=== PATIENT | female | born 1995 | race Caucasian/White ===

== ENCOUNTER → 2022-04-13 15:12 | Outpatient (CLI) | payer OTHER, SELFPAY ==
--- NOTE | 2022-04-13 15:15 | DI.US.S_ITS ---
PROCEDURE: US OB <= 14 WEEKS FETUS INDICATIONS: Dating and viability OUTSIDE/PRIOR DATING DATA: Last menstrual period (LMP): 02/19/2022 LMP-based estimated date of delivery (JACOB): 11/26/2022. First dating scan (date and location): 04/13/2022. Estimated date of delivery (JACOB) from first dating scan: 11/26/2022. TECHNIQUE: COMPARISON: None. FINDINGS: Embryo: [place]-rump length measures 1.4 cm corresponding to 7 weeks 4 days. Heart rate: 155 A yolk sac is seen. Maternal organs: Ovaries within normal limits, with right corpus luteal cyst. IMPRESSION: 7 week 4 day single living IUP corresponding to ultrasound JACOB of 11/26/2022. We strive to produce accurate, complete, and clear reports of imaging services. To assist us in improving patient care, this report was composed using standard report templates and voice recognition software. Therefore, it may contain abnormal punctuation, insertions and/or omissions. Occasional wrong-word or sound-alike substitutions may occur. Though we review the report and make efforts to correct it, we do recommend that the report be read carefully in proper context to recognize any text inaccuracies. Dictated by: Santana UGALDE Interpreted: Jose Pedroza MD on 04/13/2022 at 16:17 Transcribed by: RUBENS on 04/13/2022 at 16:18 Approved by: Jose Pedroza M.D. on 04/13/2022 at 20:10
== END ==
PROVIDERS: Referring Provider Obstetrics & Gynecology; Visit Provider Obstetrics & Gynecology
DX: Z36.87 Encounter for antenatal screening for uncertain dates (principal); Z3A.01 Less than 8 weeks gestation of pregnancy
CPT/HCPCS: 76801; 76817

== ENCOUNTER → 2022-05-17 13:14 | Outpatient (CLI) | payer OTHER, SELFPAY | PROVIDERS: Visit Provider Obstetrics & Gynecology | DX: Z34.00 Encounter for supervision of normal first pregnancy, unspecified trimester (principal) | CPT/HCPCS: 87086 ==

== ENCOUNTER → 2022-05-17 14:25 | Outpatient (CLI) | payer OTHER, SELFPAY ==
[2022-05-17 14:53] LABS: Add Manual Diff / Slide Review NO; Basophils Absolute Auto 0 /uL (0-100); Basophils Percent Auto 0.7 % (0-2); Eosinophils Absolute Auto 100 /uL (0-450); Eosinophils Percent Auto 1.3 % (2-4); Hematocrit 32.3 % (36-46); Hemoglobin 10.9 g/dL (12.0-16.0); Lymphocytes Absolute Auto 1600 /uL (1100-4500); Lymphocytes Percent Auto 34.2 % (25-40); Mean Corpuscular HGB Conc 33.8 % (30-36); Mean Corpuscular Volume 94.6 fL (80-100); Monocytes Absolute Auto 400 /uL (0-900); Monocytes Percent Auto 8.9 % (3-14); Neutrophils Absolute Auto 2500 /uL (1500-7000); Neutrophils Percent Auto 54.9 % (50-75); Platelet Count 188 X10^3/uL (150-400); Red Blood Cell Count 3.42 X10^6/uL (4.0-5.2); Red Cell Distribution Width 13.8 % (11.6-14.8); White Blood Cell Count 4.6 X10^3/uL (4.5-11.0)
[2022-05-17 16:30] LABS: Hepatitis B Surface Antigen NEGATIVE s/c (NEGATIVE); Rubella Antibody IgG 63.5 IU/mL (>15)
[2022-05-17 16:35] LABS: HIV 1 & 2 Ab/Ag 4th Gen Combo NEGATIVE (NEGATIVE); Hep C Virus Ab w/Reflex Quant NEGATIVE s/c (NEGATIVE)
[2022-05-18 09:13] LABS: Varicella IgG Antibody 176 index (Immune >165)
[2022-05-19 02:42] LABS: RPR Screen Non Reactive (Non Reactive)
== END ==
PROVIDERS: Referring Provider Obstetrics & Gynecology; Visit Provider Obstetrics & Gynecology
DX: Z34.00 Encounter for supervision of normal first pregnancy, unspecified trimester (principal)
CPT/HCPCS: 36415; 80055; 86787; 86803; 86850; 86900; 86901; 87086; 87389

== ENCOUNTER → 2022-06-15 14:01 | Outpatient (CLI) | payer OTHER, SELFPAY | PROVIDERS: Referring Provider Obstetrics & Gynecology; Visit Provider Obstetrics & Gynecology | DX: Z34.81 Encounter for supervision of other normal pregnancy, first trimester (principal) | CPT/HCPCS: 36415 ==

== ENCOUNTER → 2022-07-13 14:21 | Outpatient (CLI) | payer OTHER, SELFPAY ==
--- NOTE | 2022-07-13 14:23 | DI.US.S_ITS ---
PROCEDURE: US OB >= 14 WEEKS FETUS INDICATIONS: ANATOMY OUTSIDE/PRIOR DATING DATA: Last menstrual period (LMP): 02/19/2022. LMP-based estimated date of delivery (JACOB): 11/26/2022. First dating scan (date and location): 04/13/2022. Estimated date of delivery (JACOB) from first dating scan: 11/26/2022. The calculations are made using the working JACOB of 11/26/2022. TECHNIQUE: Real-time scanning was performed of the fetus, with image documentation and biometric measurements. Endovaginal scanning: None COMPARISON: None. FINDINGS: General: A single living intrauterine gestation is present. Presentation: Breech. Placenta: Placental position is posterior , without previa. Amniotic fluid index: 12.3 cm, normal range is 5-24 cm. Single deepest vertical pocket is 4.0 cm. heart rate: 147 beats per minute. Maternal cervical canal: 4.6 cm long. Normal lower limit is 2.5 cm. biometrics: Biparietal diameter: 5.0 cm, 21 week 0 day Head circumference: 18.3 cm, 20 week 5 day Abdominal circumference: 17.0 cm, 22 week 0 day Femur length: 3.2 cm, 20 week 0 day Clinically estimated gestational age: 20 week 4 day Composite gestational age from present scan: 21 week 0 day Estimated weight and percentile: 396 g, 72 percentile Anatomic survey: Neuro: Ventricles are non-dilated at less than 10 mm. Cisterna magna is normal at 3-11 mm. Cerebellum is normal in size and morphology. Nuchal skin fold: Normal at less than 6 mm between 14-21 weeks gestational age. Face: Nose and lips, facial profile are normal. Spine: No evidence for spina bifida. Heart: 4-chambered heart is present, with normal ventricular outflow tracts. Diaphragm: Diaphragm is intact. Stomach: Left-sided stomach is present. Kidneys: No hydronephrosis. Normal is less than 5 mm in 2nd trimester, less than 7 mm in 3rd trimester. Cord: 3-vessel cord has orthotopic insertion. Bladder: Normal in size. Extremities: All 4 extremities identified. IMPRESSION: Single live intrauterine consistent with 21 week 0 day gestation by current ultrasound Probable placental marginal cord insertion along the superior edge Approved by: Bryce Sr M.D. on 07/13/2022 at 17:47
[2022-07-16 22:03] LABS: AFP, Serum 58.4 ng/mL (.); Estriol, Free 2.47 ng/mL (.); Inhibin A, Dimeric 234.69 pg/mL (.); Inhibin A, MoM 1.12 (.); Maternal Ethnicity Caucasian (.); Maternal Weight 132 lbs (.); Number of Fetuses No (.); OSBR Risk 1 IN 10000 (.); Results Report (.); Test Results *Screen Negative* (.); hCG, MoM 0.69 (.); hCG, Serum 18727 mIU/mL (.)
== END ==
PROVIDERS: Referring Provider Obstetrics & Gynecology; Visit Provider Obstetrics & Gynecology
DX: Z34.02 Encounter for supervision of normal first pregnancy, second trimester (principal); Z3A.21 21 weeks gestation of pregnancy
CPT/HCPCS: 36415; 76811; 82105; 82677; 84702; 86336

== ENCOUNTER → 2022-08-23 08:18 | Outpatient (CLI) | payer OTHER, SELFPAY ==
[2022-08-23 10:44] LABS: Hematocrit 31.5 % (36-46); Hemoglobin 10.9 g/dL (12.0-16.0)
[2022-08-23 11:12] LABS: GTT (PREG) 1 Hour PP 50gm Dose 90 mg/dL (76-139)
== END ==
PROVIDERS: Referring Provider Obstetrics & Gynecology; Visit Provider Obstetrics & Gynecology
DX: Z34.02 Encounter for supervision of normal first pregnancy, second trimester (principal); Z3A.26 26 weeks gestation of pregnancy
CPT/HCPCS: 36415; 82950; 85014; 85018

== ENCOUNTER → 2022-11-02 15:29 | Outpatient (CLI) | payer OTHER, SELFPAY ==
[2022-11-03 14:18] LABS: Strep Grp B PCR NEG for Grp B Strep
== END ==
PROVIDERS: Visit Provider Obstetrics & Gynecology
DX: Z34.90 Encounter for supervision of normal pregnancy, unspecified, unspecified trimester (principal)
CPT/HCPCS: 87653

== ENCOUNTER 2022-11-24 22:05 | Inpatient (IN) | payer OTHER, SELFPAY ==
[2022-11-25 01:02] LABS: Add Manual Diff / Slide Review NO; Basophils Absolute Auto 0 /uL (0-100); Basophils Percent Auto 0.4 % (0-2); Eosinophils Absolute Auto 100 /uL (0-450); Eosinophils Percent Auto 1.3 % (2-4); Hematocrit 35.8 % (36-46); Hemoglobin 12.4 g/dL (12.0-16.0); Lymphocytes Absolute Auto 1200 /uL (1100-4500); Lymphocytes Percent Auto 12.1 % (25-40); Mean Corpuscular HGB Conc 34.7 % (30-36); Mean Corpuscular Hemoglobin 33.1 PG (26-34); Mean Corpuscular Volume 95.5 fL (80-100); Monocytes Absolute Auto 600 /uL (0-900); Neutrophils Absolute Auto 7600 /uL (1500-7000); Neutrophils Percent Auto 80.2 % (50-75); Platelet Count 152 X10^3/uL (150-400); Red Blood Cell Count 3.75 X10^6/uL (4.0-5.2); White Blood Cell Count 9.5 X10^3/uL (4.5-11.0)
--- NOTE | 2022-11-25 01:35 | P.PCN_ITS ---
Regional Block Pre-procedure Procedure: Continuous Lumbar Epidural for L&D Attending OB provider: Yumiko Frost PMH/ROS narrative: Minimal medical history. Uncomplicated at term. Hx: No personal or family history of anesthesia problems. ASA Class: II Labs: Hct 35.8 % (36-46) L 11/25/22 00:47 Plt Count 152 X10^3/uL (150-400) 11/25/22 00:47 Medications: Current Medications Generic Name Dose Route Start Last Admin Trade Name Freq PRN Reason Stop Dose Admin Carboprost Tromethamine 250 mcg 11/24/22 23:14 Carboprost 250 Mcg/Ml Ampul IM Q90M PRN Bleeding Diphenhydramine HCl 25 mg 11/25/22 00:25 Diphenhydramine 50 Mg/Ml Vial IV Q10M PRN Pruritis Ephedrine Sulfate 10 mg 11/25/22 00:25 Ephedrine 50 Mg/Ml Vial IV Q5M PRN Blood pressure decrease more than 20% of baseline. Oxytocin/Lactated Ringer's 30 unit in 500 mls @ 200 mls/hr 11/24/22 23:14 Oxytocin Premix IV CONT PRN Bleeding Protocol Tranexamic Acid 1,000 mg/ 100 mls @ 200 mls/hr 11/24/22 23:14 Sodium Chloride IV NOW PRN Bleeding Lactated Ringer's 1,000 mls @ 100 mls/hr 11/24/22 23:15 Lactated Ringers IV CONT ULISES FENT 2MCG/ML BUPIV 0.1% EPI 200 mcg in 100 mls @ 12 mls/hr 11/25/22 00:30 Fentanyl/Bupiv/Ns 2mcg/Ml - 0.1% EPIDURAL CONT ULISES Lidocaine HCl 20 ml 11/24/22 23:14 Lidocaine 1% 20 Ml INJ INTRA-OP PRN Post Delivery Methylergonovine Maleate 0.2 mg 11/24/22 23:14 Methylergonovine 0.2 Mg Tablet PO Q6HR PRN Heavy Bleeding Methylergonovine Maleate 0.2 mg 11/24/22 23:14 Methylergonovine 0.2 Mg/Ml Vial IM NOW PRN Bleeding Misoprostol 800 mcg 11/24/22 23:14 Misoprostol 200 Mcg Tablet [place] NOW PRN Bleeding Misoprostol 400 mcg 11/24/22 23:14 Misoprostol 200 Mcg Tablet SL NOW PRN Bleeding Nalbuphine HCl 2.5 mg 11/25/22 00:25 Nalbuphine 20 Mg/Ml Ampul IV Q10M PRN Pruritis Naloxone HCl 0.2 mg 11/24/22 23:14 Naloxone 0.4 Mg/Ml Vial IV Q2MIN PRN Opiate Reversal Oxytocin 10 unit 11/24/22 23:14 Oxytocin 10 Unit/Ml Vial IM NOW PRN Bleeding Allergies: Allergies Allergy/AdvReac Type Severity Reaction Status Date / Time No Known Drug Allergies Allergy Unverified 11/24/22 13:56 Procedure Insertion date: 11/25/22 Insertion time: 00:55 Prep/Local: 1% lidocaine (Sterile technique with mask, Chloraprep scrub, sterile gloves, and large sterile drape) Interspace: L3-4 Patient position: sitting Needle: 18 gauge Aly Loss of resistance with: saline (with air bubble) FRANK at (cm): 3 Catheter placed at SKIN (cm): 8 Catheter in SPACE (cm): 5 Insertion: No CSF, No Blood, No Paresthesia with insertion, No Paresthesia with injection and No Test dose reaction Initial Medications TEST DOSE time: 01:07 TEST DOSE: 1.5% lidocaine with epinephrine 1:200k (mL): 3 BOLUS DOSE time: 01:12 BOLUS DOSE (mL): 6 BOLUS DOSE med: other (0.1% bupivacaine with 2mcg/mL fentanyl (bag solution)) Infusion INFUSION: with fentanyl 2 mcg/mL (0.1% bupivacaine with 2mcg/mL fentanyl (bag solution)) Initial rate (mL/hr): 12 Subsequent interventions: 11/25/22 - 399 - Proceeded to due to breech presentation. Patient and baby stable at time of call for section. See c- section anesthesia for further documentation. Epidural eventually removed after at approximately 0545 with tip intact. Post-procedure Anesthesia time START: 00:53 Anesthesia time END: 04:47 Post-procedure Anesthesia Assessment: Yes CV function: HR/BP stable, Yes Resp function: RR/sat/airway adequate, Yes Post-op hydration adequate, Yes Pain control adequate, Yes Nausea & vomiting absent, Yes Temperature > 36 C, Yes Mental status appropriate and Yes Anesthesia complications
--- NOTE | 2022-11-25 04:03 | PM.OBHP.IH.1 ---
OB HPI Date/Time Date of admission: 11/25/22 Date Patient Seen: 11/25/22 Time Patient Seen: 04:03 History of Present Condition Chief complaint: observation of labor JACOB Calculator Estimated Delivery Date Method Current WG Current Estimate 11/26/22 LMP (Certain) 39w 6d Other Estimates 11/26/22 Ultrasound #1 39w 6d Estimated Gestational Age (weeks): 39w6d : 1 Para: 0 Narrative: 27yo at 39w6d here with painful contractions and LOF at 20:30 with clear fluid. The pt reports contractions started to get stronger shortly after her water broke. She denies any vaginal bleeding. She is feeling her baby move regularly. Her was without significant complications. care: good care, initiated at week # (12) and pounds weight gain (39) Dating criteria OB: LMP confirmed by 1st trimester US Ultrasounds: normal 1st trimester US and normal mid trimester US Obstetrical complications: none Medical complications OB: none Preadmission Labs Last OB Lab Results: Blood Type A Positive 11/25/22 00:47 Antibody Screen Negative 11/25/22 00:47 Hematocrit 35.8 % (36-46) L 11/25/22 00:47 Hemoglobin 12.4 g/dL (12.0-16.0) 11/25/22 00:47 Hepatitis B Surface Antigen Negative s/c (NEGATIVE) 05/17/22 14:35 Hepatitis C Antibody Negative s/c (NEGATIVE) 05/17/22 14:35 Rubella Antibody 63.5 IU/mL (>15) 05/17/22 14:35 Varicella-Zoster IgG Antibody 176 index (Immune >165) 05/17/22 14:35 Glucose 1 Hour 90 mg/dL (76-139) 08/23/22 10:26 Group B Streptococcus (PCR) Neg for grp b strep 11/02/22 15:29 -: Chlamydia screen: negative and Gonorrhea screen: negative -: PAP smear: Normal Genetic Screens: Quad screen: Normal Evaluation Evaluation Baseline heart rate: 150 Variability: Moderate (11-25) monitor accelerations: Present Monitor Decelerations: Variable Contraction Frequency (minutes): 2 Uterine Contraction Intensity: Strong/Firm Status: Category ll Dilation (cm): 10 Effacement (%): 100 station: +1 [facility] Medical History (Updated 11/09/22 @ 17:28 by Casey Jane MD) Acne (~2006) History of BCG vaccination Hyperlipidemia Surgical History (Updated 05/16/22 @ 19:40 by Kateryna Farah) Anesthesia H/O breast augmentation (~2018) [place] teeth extracted (~2014) Family History (Updated 05/16/22 @ 19:44 by Kateryna Farah) Father Colon cancer Smoker Mother Hyperlipidemia Grandfather Lung cancer Smoker Family/Other Breast cancer Grandmother Hypertension Stomach cancer Hyperlipidemia Grandfather Heart failure Smoker Grandmother History of heart disease Social History marital status: number of children: 0 household members: spouse lives independently: Yes caregiver/support person: No housing: house pets and animals: Yes (1 cat) education level: college (samaria's degree) occupational status: employed (works from home) current occupational exposures/hazards: No law/nondenominational: Ca[employer]ism special law needs: No travel history: recent (domestic, [place]) seatbelt use: always helmet use: Yes water heater temp set < 120 deg: Yes working smoke detector in home: Yes fire extinguisher in home: Yes carbon monox detector in home: Yes firearms in home: No do you feel safe at home: Yes Smoking Status: Never smoker second hand exposure: No alcohol intake: former (rarely when not ) substance use type: does not use during the past year weight has: remained stable well-balanced diet: daily or most days daily servings fruits/ve-4 caffeine: Yes (aware of 200mg limit) Type(s) of exercise: aerobic and weight lifting frequency: 3-4 times per week Meds Home Medications and Allergies Home Medications Medication Instructions Recorded Confirmed Type cholecalciferol (vitamin D3) 50 50 mcg PO DAILY 04/09/22 11/16/22 History mcg (2,000 unit) capsule prenat.vits,artemio,owr-euiw-mhahm 1 tab PO DAILY 04/09/22 11/16/22 History ondansetron 4 mg disintegrating 4 mg PO Q6-8H PRN nausea and 07/16/22 11/16/22 Rx tablet vomiting #20 tabs Electronic Breast Pump and Kit #1 ea 11/02/22 11/16/22 Rx Allergies Allergy/AdvReac Type Severity Reaction Status Date / Time No Known Drug Allergies Allergy Unverified 11/24/22 13:56 OB Exam Narrative Exam Narrative: Gen: NAD, sitting comfortably in bed, appears well CV: RRR, no murmurs Resp: clear to auscultation bilaterally Abd: soft, nontender, gravid Ext: no edema Objective Labs 11/25/22 00:47 Labs: Laboratory Results - last 24 hr 11/25/22 11/25/22 00:47 00:47 WBC 9.5 RBC 3.75 L Hgb 12.4 Hct 35.8 L MCV 95.5 MCH 33.1 MCHC 34.7 RDW 13.0 Plt Count 152 Neut % (Auto) 80.2 H Lymph % (Auto) 12.1 L [place] % (Auto) 6.0 Eos % (Auto) 1.3 L Baso % (Auto) 0.4 Neut # (Auto) 7600 H Lymph # (Auto) 1200 [place] # (Auto) 600 Eos # (Auto) 100 Baso # (Auto) 0 Blood Type A Positive Antibody Screen Negative Assessment and Plan Assessment and Plan Assessment and Plan narrative: 27yo at 39w6d here in active labor with SROM at home with clear fluid. Rh positive, GBS negative. On cervical exam, head not palpated and fetus confirmed breech on bedside ultrasound. Due to this, the decision was made to proceed with an emergent . Risks including but not limited to bleeding/hemorrhage, infection, injury to other organs such as bowel/bladder, injury to fetus. The pt agrees to blood transfusion if medically necessary. Consent was signed and placed in the chart. The pt will receive 2g of Ancef and 500mg Azithromycin prior to surgery. SCDs to be placed. The OR team was contacted, and Dr Ashton to assist.
[2022-11-25] MEDS: TERBUTALINE 1 MG/ML VIAL SUBCUT (04:04)
--- NOTE | 2022-11-25 04:35 | PM.PREOP ---
Pre-operative Note Interval Note History & Physical reviewed/Exam performed by Physician: Yes Changes to H&P: No
[2022-11-25] MEDS: CEFAZOLIN 2 GM/100 ML PREMIX 100 ML IV (04:56)
[2022-11-25] MEDS: AZITHROMYCIN 500 MG in DEXTROSE 5% IN WATER 250 ML 250 MG IV (05:09)
--- NOTE | 2022-11-25 05:15 | SUR.OPER ---
TOB live female @ 0500. Cord blood and placenta to OB with Ob RN's
--- NOTE | 2022-11-25 05:33 | SUR.OPER ---
Supine on Padded OR bed, head on pillow, safety belt at thigh, arms secured on padded arm boards at <90 degrees abduction. Bump under right buttock. Legs uncrossed with pillow under knees, gel pad to heels, tape over blanket to lower legs.
[2022-11-25 05:47] VITALS: BP 104/55; PULSE 74; RESP 14; TEMP 36.8; O2SAT 100
--- NOTE | 2022-11-25 05:47 | P.OP_ITS ---
Operative Date/Time/Diagnoses Date of procedure: 11/25/22 Time of procedure: 05:00 Pre-op diagnosis: 39w6d gestation GBS negative RH positive Breech presentation Post-op diagnosis: same Procedure & Clinicians Procedure: Primary Same procedure as scheduled: Yes Indications: Breech presentation Surgeon: Yumiko Frost Mountain Services Manager: Ava Ashton Anesthesia Type: Epidural Operative Notes Findings: Normal uterus, ovaries, and tubes Closure Type: primary Specimen(s): cord blood Intraoperative meds administered: Duramorph, Ketorolac and Pitocin Applied: Catheter Estimated Blood Loss (mL): 400 Blood products transfused: none Procedure in detail: OPERATIVE COURSE: The patient was taken to the operating room where epidural anesthesia was bolused. She was then prepared and draped in the normal sterile fashion in the dorsal supine position with a leftward tilt. Anesthesia was tested and found to be adequate. A Pfannensteil skin incision was then made with the scalpel and carried through to the underlying layer of fascia with the scalpel. The fascia was incised in the midline and the incision extended laterally with the Alaniz scissors. The superior aspect of the fascial incision was then grasped with Jeremy clamps, elevated with the help of the instructor adjunct surgical technician, and the underlying rectus muscles dissected off bluntly and sharply where needed. Attention was then turned to the inferior aspect of the incision which, in a similar fashion, was grasped, tented up with Jeremy clamps, and the rectus muscle dissected off bluntly and sharply with Alaniz scissors. The rectus muscles were then in the midline, and the peritoneum was identified and entered bluntly. The peritoneal incision was then extended with good visualization of the bladder. Retraction was provided by the instructor adjunct surgical technician. The bladder blade was then inserted and the vesicouterine peritoneum identified, grasped with pick-ups and entered sharply with the Metzenbaum scissors. The incision was then extended laterally and the bladder flap created digitally. The bladder blade was then reinserted and the lower uterine segment incised in a transverse fashion with the scalpel, with the instructor adjunct surgical technician providing suction. The uterine incision was then extended superolaterally by pulling superolaterally on both sides. The bladder blade was removed. buttocks was delivered with gentle traction. The baby was then wrapped in a moist towel and anterior arm delivered. The baby was then flipped and the other arm delivered. head was then delivered by rotating the body onto maternal abdomen. The nose and mouth were suctioned with bulb suction and the cord was clamped and cut after 1 minute. The infant was handed off to the waiting nursing staff. Cord blood was collected for Rh status. The placenta was then delivered with gentle cord traction. The uterus was then cleared of all clots and debris. The uterine incision was repaired with 1 Chromic in a running, locked fashion. A second layer of the same suture was used to obtain excellent hemostasis. The gutters were cleared of all clots. Hysterotomy was investigated and found to be hemostatic. The bladder flap was closed with 2-O Vicyrl The peritoneum was closed with 2-O Vicryl. The fascia was reapproximated with 1-O Vicryl in a running fashion. The subcutaneous tissue was reapproximated with 3-O Vicryl. T he skin was closed with 4-O Vicryl. The instructor adjunct surgical technician helped with retraction during closures. SPONGE AND NEEDLE COUNTS: Correct x3. DRESSING: Aquacel ANTICOAGULATION: SCDs applied prior to Surgery Preop antibiotics given (see MAR). The patient was taken to recovery room having tolerated procedure well. Complications: none Baby 1: Infant Gender: Female Presentation: breech Details: rei Placental Delivery Description: Spontaneous Cord Vessel Description: 3 Vessels score (1 min): 9 score (5 min): 9 weight: 6 lb 14.831 oz Post-operative Condition: stable Disposition: PACU Aftercare: routine postop
[2022-11-25 05:53] VITALS: BP 110/54; PULSE 72; RESP 14; O2SAT 100
[2022-11-25 05:56] VITALS: BP 116/59; PULSE 75; RESP 18; O2SAT 100
[2022-11-25 06:02] VITALS: BP 114/56; PULSE 70; RESP 18; TEMP 36.8; O2SAT 100
[2022-11-25] MEDS: ACETAMINOPHEN 325 MG TABLET 650 MG PO (10:44)
[2022-11-25] MEDS: DOCUSATE 100 MG CAPSULE PO (10:44)
[2022-11-25] MEDS: PRENATAL VIT,CALC/IRON/FOLIC 1 TABLET 1 TAB PO (10:44)
[2022-11-25] MEDS: KETOROLAC 30 MG/ML VIAL IV ×2 (13:31→19:58)
[2022-11-26] MEDS: ACETAMINOPHEN 325 MG TABLET 650 MG PO ×2 (02:55→09:00)
[2022-11-26] MEDS: IBUPROFEN 600 MG TABLET PO ×2 (02:56→09:00)
[2022-11-26 06:25] LABS: Add Manual Diff / Slide Review NO; Basophils Absolute Auto 0 /uL (0-100); Basophils Percent Auto 0.5 % (0-2); Eosinophils Absolute Auto 300 /uL (0-450); Eosinophils Percent Auto 3.4 % (2-4); Hematocrit 30.5 % (36-46); Hemoglobin 10.4 g/dL (12.0-16.0); Lymphocytes Absolute Auto 1700 /uL (1100-4500); Lymphocytes Percent Auto 18.6 % (25-40); Mean Corpuscular Hemoglobin 32.9 PG (26-34); Mean Corpuscular Volume 96.7 fL (80-100); Monocytes Absolute Auto 800 /uL (0-900); Neutrophils Absolute Auto 6200 /uL (1500-7000); Neutrophils Percent Auto 68.5 % (50-75); Platelet Count 126 X10^3/uL (150-400); Red Blood Cell Count 3.15 X10^6/uL (4.0-5.2); Red Cell Distribution Width 13.1 % (11.6-14.8)
[2022-11-26] MEDS: PRENATAL VIT,CALC/IRON/FOLIC 1 TABLET 1 TAB PO (09:00)
[2022-11-26] MEDS: DOCUSATE 100 MG CAPSULE PO (09:00)
--- NOTE | 2022-11-26 10:01 | PM.OBDS.1 ---
Discharge Providers Provider Date of admission: 11/24/22 22:05 Discharge Date: 11/26/22 Consults: 11/24/22 23:16 Consult to Anesthesiology Urgent Comment: Consulting Provider: Ernesto Pat Reason for consultation: Epidural 11/25/22 06:11 Consult to School Bus Attendant Routine Comment: Discharge provider: Yumiko Frost MD Summary Hospital Course Date Patient Seen: 11/26/22 Diagnoses: 39w6d gestation GBS negative RH positive Breech presentation Primary c-sectionP Hospital Course: The pt presented with SROM at home, in active labor. She received an epidural for pain control. She progressed to complete dilation. Upon evaluation by this provider, the pts fetus was noted to have breech presentation, confirmed by bedside ultrasound. She was then taken for emergent . She delivered a healthy, viable girl without complications. , there were no complications. At the time of discharge she was voiding, ambulating, and passing flatus without difficulty. Her lochia was decreasing appropriately. Her pain was well controlled. She was with good latch. She will f/u in 1 week for incision check. Peripartum Data Delivery Method: Emergency Section Procedures: Primary complications: none [place] 1: Gender: Female Disposition of : home Discharge Diagnosis (1) Delivery by section for breech presentation: Status: Acute Time Spent with Patient Time attestation: Total time spent providing and/or coordinating discharge services: Objective Labs 11/26/22 06:15 Labs: Laboratory Results - last 24 hr 11/26/22 06:15 WBC 9.0 RBC 3.15 L Hgb 10.4 L Hct 30.5 L MCV 96.7 MCH 32.9 MCHC 34.0 RDW 13.1 Plt Count 126 L Neut % (Auto) 68.5 Lymph % (Auto) 18.6 L [place] % (Auto) 9.0 Eos % (Auto) 3.4 Baso % (Auto) 0.5 Neut # (Auto) 6200 Lymph # (Auto) 1700 [place] # (Auto) 800 Eos # (Auto) 300 Baso # (Auto) 0 Exam Vital Signs (past 8 hours): Oxygen Delivery Method Room Air Resp Auscultation: clear to auscultation bilaterally Cardio Rate: regular rate Rhythm: regular rhythm Heart Sounds: S1 normal, S2 normal and no murmurs GI Inspection: non-distended and incision (dressing c/d/i) Palpation: soft, No guarding and tender (appropriately tender) Auscultation: normal bowel sounds Other: fundus firm and below the umbilicus Extrem Right upper extremity: no edema Discharge Plan Discharge Plan Patient Disposition: Home Discharge orders & Medications Prescriptions: New acetaminophen 325 mg Tablet 650 mg PO Q6H Qty: 60 0RF docusate sodium 100 mg Capsule 100 mg PO DAILY Qty: 30 0RF ibuprofen 600 mg Tablet 600 mg PO Q6H Qty: 90 0RF oxycodone 5 mg Tablet 5 mg PO Q4H PRN (Reason: Pain, Moderate (4-6)) Qty: 20 0RF Continued prenat.vits,artemio,dwr-edhw-ruwjx Tablet 1 tab PO DAILY cholecalciferol (vitamin D3) 50 mcg (2,000 unit) capsule 50 mcg PO DAILY Discontinued ondansetron 4 mg tablet,disintegrating 4 mg PO Q6-8H PRN (Reason: nausea and vomiting) Qty: 20 2RF No Action (DME) Electronic Breast Pump and Kit See Rx Instructions .Route .MEDSUPPLY Qty: 1 0RF Rx Instructions: As directed Follow up/Referrals: Yumiko Frost MD [Physician] - (1 week incision check w/ Dr. Frost: ) Diet/Activity/Treatments Diet: Diet as Tolerated and Regular Skin/Wound/Dressing Care Report to your healthcare provider any signs of infection, such as:: chills, fever, increased pain and unusual drainage Visit Report/Discharge Packet Instructions: DI for , DI for Prescription Opioid Use Stand Alone Forms: Discharge: Care, Patient Portal/API, Stroke Signs & Symptoms
[2022-11-26 15:37] VITALS: BP 110/62; PULSE 76; RESP 18; TEMP 37.1
== END 2022-11-26 15:37 | disposition home or self-care (01) | DRG 788 ==
PROVIDERS: Specialist; Admitting Provider Family Medicine; Referring Provider Family Medicine; Visit Provider Family Medicine
PROC: (CPT 59514; principal; 2022-11-25 04:45)
DX: O32.1XX0 Maternal care for breech presentation, not applicable or unspecified (principal); Z3A.39 39 weeks gestation of pregnancy; Z37.0 Single live birth
CPT/HCPCS: 36415; 59050; 59510; 59514; 85025; 86850; 86900; 86901; G0379; J0690; J1885; J2274; J2405

== ENCOUNTER → 2023-05-10 14:25 | Outpatient (CLI) | payer OTHER, SELFPAY ==
[2023-05-10 14:54] LABS: Add Manual Diff / Slide Review NO; Basophils Absolute Auto 0 /uL (0-100); Basophils Percent Auto 0.7 % (0-2); Eosinophils Absolute Auto 100 /uL (0-450); Eosinophils Percent Auto 3.1 % (2-4); Hematocrit 37.3 % (36-46); Hemoglobin 12.6 g/dL (12.0-16.0); Lymphocytes Absolute Auto 2300 /uL (1100-4500); Mean Corpuscular HGB Conc 33.8 % (30-36); Mean Corpuscular Hemoglobin 31.3 PG (26-34); Mean Corpuscular Volume 92.7 fL (80-100); Monocytes Absolute Auto 400 /uL (0-900); Monocytes Percent Auto 9.7 % (3-14); Neutrophils Absolute Auto 1500 /uL (1500-7000); Neutrophils Percent Auto 33.5 % (50-75); Platelet Count 314 X10^3/uL (150-400); Red Blood Cell Count 4.03 X10^6/uL (4.0-5.2); White Blood Cell Count 4.4 X10^3/uL (4.5-11.0)
[2023-05-10 16:12] LABS: Vitamin B12 828 pg/mL (239-931)
== END ==
PROVIDERS: PCP Family Medicine; Referring Provider Family Medicine; Visit Provider Family Medicine
DX: G62.9 Polyneuropathy, unspecified (principal)
CPT/HCPCS: 36415; 82607; 85025